=== PATIENT | female | born 1960 | race African-American/Black ===

== ENCOUNTER 2017-05-12 07:57 | Outpatient (CLI) | payer MEDICARE, MEDICAID ==
--- NOTE | 2017-05-12 15:57 | NM ---
NUCLEAR MEDICINE PARATHYROID SCAN WITH SPECT CT: 05/12/17 HISTORY: 56-year-old female with hyperparathyroidism and prior parathyroid surgery. TECHNIQUE: Following the intravenous administration of 25.2 millicuries technetium 99m labeled Sestamibi, immed iate post injection imaging, one hour delay imaging and two hour delay imaging is obtained in the a nterior, BERE, and BAHAMIAN positions. In addition, SPECT CT was obtained at two hour delay. FINDINGS: There is a subtle area of radiotracer activity corresponding to a subcentimeter hypodense nodule pos terior to t he inferior aspect of the left lobe of the thyroid gland anterior to the esophagus and m edial to the internal jugular vein. This is suspicious for a subcentimeter parathyroid adenoma poste rior to the inferior aspect of the left lobe of the thyroid gland. No additional abnormality is seen . Correlation with a CT examination of the neck with and without IV contrast using the parathyroid slick noma protocol may be beneficial. If this is performed, recommend injecting the patient through the right arm. IMPRESSION: Findings suspicious for a subcentimeter parathyroid adenoma posterior to the inferior aspect of the left lobe of the thyroid gland. This was evaluated in consultation with Dr. Juarez who is in agreement. POS: [facility]
== END 2017-05-12 07:58 | disposition home or self-care (01) ==
LOC: NM 07:57
PROVIDERS: ATTEND Otolaryngology Plastic Surgery within the Head & Neck
DX: E21.3 Hyperparathyroidism, unspecified (principal)
CPT/HCPCS: 78072; A9500

== ENCOUNTER 2017-06-16 08:31 | Day surgery (SDC) | payer MEDICARE, MEDICAID ==
[2017-06-08 11:23] VITALS: BMI 31.8
[2017-06-16 10:29] LABS: Hematocrit 32.4 % (36.0-47.0)
[2017-06-16 10:46] LABS: Anion Gap 12 mmol/L (10-20); BUN (Urea Nitrogen) 16 mg/dL (9.8-20.1); Calc. Creatinine Clearance 70 mL/min (70-130); Calcium 11.2 mg/dL (7.8-10.44); Carbon Dioxide 21 mmol/L (22-29); Chloride 110 mmol/L (98-107); Estimated GFR-MDRD 56
[2017-06-16] MEDS ORDERED: Lidocaine 1% w/Epinephrine 1:200K 30 ML VIAL ONE (11:28)
[2017-06-16] MEDS ORDERED: Fentanyl 250 MCG/5 ML VIAL ONE (11:50)
[2017-06-16] MEDS ORDERED: Midazolam HCl 2 mg/2 ml Vial ONE (12:02)
[2017-06-16] MEDS ORDERED: Morphine 4 MG/ML VIAL ONE (14:38)
[2017-06-16] MEDS ORDERED: Ondansetron HCl/PF 4 MG/2 ML Vial ONE (16:15)
[2017-06-16] MEDS ORDERED: Dexamethasone 20 MG/5 ML VIAL ONE (16:15)
[2017-06-16] MEDS ORDERED: Lidocaine 1% PF 5 ML VIAL ONE (16:15)
[2017-06-16] MEDS ORDERED: ePHEDrine/0.9% NaCl/PF SYRINGE 50 mg/10 ml ONE (16:15)
[2017-06-16] MEDS ORDERED: Succinylcholine Chloride 20 MG/ML 10 ml SYRINGE FS ONE (16:15)
[2017-06-16] MEDS ORDERED: Propofol 200 MG/20 ML VIAL ONE (16:15)
--- NOTE | 2017-06-17 11:28 | OP ---
DATE OF PROCEDURE: 06/16/2017 PREOPERATIVE DIAGNOSES: 1. Hyperparathyroidism. 2. Hypercalcemia. POSTOPERATIVE DIAGNOSES: 1. Hyperparathyroidism. 2. Hypercalcemia. PROCEDURE PERFORMED: Left parathyroidectomy. SURGEON: Dr. Sohan Simmons. BOOKIE: Dr. Rahat Spear. ESTIMATED BLOOD LOSS: 10 mL. COMPLICATIONS: None. ANESTHESIA: GETA with laryngeal nerve monitoring. PROCEDURE IN DETAIL: The patient was taken to the operating room and placed supine on the table. Ge neral endotracheal anesthesia was obtained by the Anesthesia staff. Direct laryngoscopy was used to confirm that the laryngeal electrodes were between the true vocal cord and then the laryngeal tube wa s then secured to the midline of the upper lip. A shoulder roll was placed. The patient was then pr epped and draped for standard surgical procedure. Following this, 6 mL of 1% lidocaine with 1:100,00 0 epinephrine was injected into a previous parathyroid incision and horizontally across the lower nec k. Following this, subplatysmal flaps were elevated superiorly and inferiorly. The strap muscles we re identified and were in the midline. The thyroid gland was identified within the scar ca psule and dissection was carried immediately adjacent to the thyroid capsule. A large bilobed parath yroid adenoma was encountered and was removed. Rapid PTH confirmation confirmed drop of the PTH leve l to 55 from its previous . Intraoperative frozen section also confirmed parathyroid adenoma. Following this, the wound was irrigated, a small amount of Surgicel was placed in the surgical bed an d the wound was closed using Monocryl stitches and Dermabond to the skin. The patient tolerated the procedure well.
== END 2017-06-16 17:00 | disposition home or self-care (01) ==
LOC: SDC 08:31
PROVIDERS: ATTEND Otolaryngology Plastic Surgery within the Head & Neck
PROC: 0GBR0ZZ Excision of Parathyroid Gland, Open Approach (ICD-10-PCS; principal; 2017-06-16)
DX: E21.3 Hyperparathyroidism, unspecified (principal); K21.9 Gastro-esophageal reflux disease without esophagitis; E11.9 Type 2 diabetes mellitus without complications; Z79.4 Long term (current) use of insulin; Z79.899 Other long term (current) drug therapy; Z90.710 Acquired absence of both cervix and uterus; Z90.722 Acquired absence of ovaries, bilateral; Z98.42 Cataract extraction status, left eye; Z98.41 Cataract extraction status, right eye
CPT/HCPCS: 36416; 80048; 83970; 85014; 85018; 85049; 88305; 88331; 88334; 93005; 93010; 96374; J0131; J1100; J2001; J2250; J2270; J2405; J2704; J3010

== ENCOUNTER 2018-03-24 08:48 | Outpatient (CLI) | payer MEDICARE, MEDICAID ==
--- NOTE | 2018-03-24 10:02 | ULT ---
LEFT LOWER EXTREMITY VENOUS DOPPLER: Date: 03/24/18 HISTORY: Pain left leg. COMPARISON: None. TECHNIQUE: Real-time Wallace scale and color Doppler with spectral analysis of the left lower extremity venous sys tem was performed through the common femoral, femoral, proximal portions of greater saphenous and sacha p femoral veins, as well as the popliteal and posterior tibial veins were interrogated. FINDINGS: Normal flow, augmentation, and compression. IMPRESSION: No deep venous thrombosis. POS: [facility]
== END 2018-03-24 08:49 | disposition home or self-care (01) ==
LOC: ULT 08:48
PROVIDERS: ATTEND Physician Assistant
DX: M79.605 Pain in left leg (principal)

== ENCOUNTER 2018-05-09 08:21 | Outpatient (CLI) | payer MEDICARE, MEDICAID | END 2018-05-09 08:22 | disposition home or self-care (01) | LOC: BICMAMMO 08:21 | PROVIDERS: ATTEND Physician Assistant | DX: Z12.31 Encounter for screening mammogram for malignant neoplasm of breast (principal); Z80.3 Family history of malignant neoplasm of breast | CPT/HCPCS: 77063; 77067 ==

== ENCOUNTER 2019-01-04 10:10 | Outpatient (CLI) | payer MEDICARE, MEDICAID ==
--- NOTE | 2019-01-04 11:49 | MRI ---
MRI left shoulder WO Con HISTORY: Shoulder pain x2 years COMPARISON: None. FINDINGS: There is mild arthrosis of the AC joint. The supra as well as infraspinatus tendons are intact. The subscapularis muscle and tendon are intact and the biceps tendon is normal in position within the bicipital groove. The labrum is difficult to assess on this examination. Some increased signal change within the superi or labrum could indicate some degeneration but no definitive tear. The inferior glenohumeral ligament is intact. There is no significant rotator cuff muscle atrophy noted. Of incidental note is some blooming artifact related to the posterior back suggesting some type of me tallic foreign body.. IMPRESSION: No evidence of rotator cuff tear or any definitive findings of acute labral injury. Minim al fluid associated with the subacromial subdeltoid bursa.
== END 2019-01-04 10:11 | disposition home or self-care (01) ==
LOC: SCSMRI 10:10
PROVIDERS: ATTEND Orthopaedic Surgery
DX: M25.512 Pain in left shoulder (principal)

== ENCOUNTER 2019-05-10 07:59 | Outpatient (CLI) | payer MEDICARE, MEDICAID ==
--- NOTE | 2019-05-10 08:42 | MMO ---
Bilateral MAMMO Bilat Screen [facility]. CLINICAL HISTORY: Patient is 58 years old and is seen for screening. The patient has the following family history of breast cancer: sister. The patient has no personal history of cancer. VIEWS: The views performed were: bilateral craniocaudal with tomosynthesis and bilateral mediolateral oblique with tomosynthesis. FILMS COMPARED: The present examination has been compared to prior imaging studies performed at [facility] on 05/04/2016, 05/21/2016, 05/06/2017 and 05/09/2018. This study has been interpreted with the assistance of computer-aided detection. MAMMOGRAM FINDINGS: There are scattered fibroglandular densities. Finding 1: There is a stable nodule seen in the sub-areolar region of the right breast. Finding 2: There are stable benign appearing calcifications seen in both breasts. There are also vascular calcifications. There are no suspicious masses, suspicious calcifications, or new areas of architectural distortion. IMPRESSION: THERE IS NO MAMMOGRAPHIC EVIDENCE OF MALIGNANCY. A ROUTINE FOLLOW-UP MAMMOGRAM IN 1 YEAR IS RECOMMENDED. THE RESULTS OF THIS EXAM WERE SENT TO THE PATIENT. ACR BI-RADS Category 2 - Benign finding MAMMOGRAPHY NOTE: 1. A negative mammogram report should not delay a biopsy if a dominant of clinically suspicious mass is present. 2. Approximately 10% to 15% of breast cancers are not detected by mammography. 3. Adenosis and dense breasts may obscure an underlying neoplasm. Reported by: BRIAN ESCOBEDO MD Electonically Signed: [id number]
== END 2019-05-10 08:00 | disposition home or self-care (01) ==
LOC: BICMAMMO 07:59
PROVIDERS: ATTEND Physician Assistant
DX: Z12.31 Encounter for screening mammogram for malignant neoplasm of breast (principal); Z80.3 Family history of malignant neoplasm of breast
CPT/HCPCS: 77063; 77067

== ENCOUNTER 2020-04-08 08:01 | Outpatient (CLI) | payer MEDICARE, MEDICAID ==
[2020-04-08] MEDS ORDERED: Iopamidol-370 76% 500 ML 1 ML ONE (08:48)
--- NOTE | 2020-04-08 10:56 | CT ---
CT OF THE ABDOMEN AND PELVIS WITH AND WITHOUT IV CONTRAST: INDICATION: Microhematuria. COMPARISON: None. FINDINGS: The lung bases are clear. The gallbladder and liver appear within normal limits. The pancreas and spleen appear within normal limits. There is a 1 cm nodule involving the left adrenal body that cannot be further characterized. There i s an 8 mm right adrenal adenoma that is present. There are tiny subcentimeter cysts involving both kidneys. No solid renal lesion is evident. No def inite renal or ureteral calculus is evident. No hydronephrosis is demonstrated. No gross urothelial lesion is seen on the delayed-phase images. There is prominent wall thickening and perivesicular fat stranding involving the bladder. There are mild vascular calcifications involving the abdominal aorta. There is a normal appendix in the right lower quadrant. The rectum and perirectal soft tissues are unremarkable-appearing. The small bowel is normal-appearing. No definite acute osseous abnormality is evident. IMPRESSION: 1. Findings suspicious for cystitis. Recommend correlation with clinical exam. 2. Tiny subcentimeter hypodensities involving both kidneys suspicious for tiny cysts. 3. Right adrenal adenoma and incompletely characterized left adrenal nodule. Followup CT of the abd omen utilizing adrenal mass protocol is recommended for additional characterization. POS: [facility]
== END 2020-04-08 08:02 | disposition home or self-care (01) ==
LOC: BICCT 08:01
PROVIDERS: ATTEND Urology
DX: R31.29 Other microscopic hematuria (principal); D35.01 Benign neoplasm of right adrenal gland; E27.8 Other specified disorders of adrenal gland; R93.422 Abnormal radiologic findings on diagnostic imaging of left kidney; R93.421 Abnormal radiologic findings on diagnostic imaging of right kidney
CPT/HCPCS: 74178; 81001; 82565; 87077; 87086; 87186; 88112; Q9967

== ENCOUNTER 2020-05-22 11:06 | Outpatient (CLI) | payer MEDICARE, MEDICAID ==
--- NOTE | 2020-05-22 13:44 | MMO ---
Bilateral MAMMO Bilat Screen [facility]. CLINICAL HISTORY: Patient is 60 years old and is seen for screening. The patient has the following family history of breast cancer: sister. The patient has no personal history of cancer. VIEWS: The views performed were: bilateral craniocaudal with tomosynthesis and bilateral mediolateral oblique with tomosynthesis. FILMS COMPARED: The present examination has been compared to prior imaging studies performed at [facility] on 05/21/2016, 05/06/2017, 05/09/2018 and 05/10/2019. This study has been interpreted with the assistance of computer-aided detection. MAMMOGRAM FINDINGS: There are scattered fibroglandular densities. Benign calcifications are noted bilaterally. Nodularity is stable. There are no suspicious masses, suspicious calcifications, or new areas of architectural distortion. IMPRESSION: THERE IS NO MAMMOGRAPHIC EVIDENCE OF MALIGNANCY. A ROUTINE FOLLOW-UP MAMMOGRAM IN 1 YEAR IS RECOMMENDED. THE RESULTS OF THIS EXAM WERE SENT TO THE PATIENT. ACR BI-RADS Category 2 - Benign finding MAMMOGRAPHY NOTE: 1. A negative mammogram report should not delay a biopsy if a dominant of clinically suspicious mass is present. 2. Approximately 10% to 15% of breast cancers are not detected by mammography. 3. Adenosis and dense breasts may obscure an underlying neoplasm. Reported by: CHINO ROBERTS MD Electonically Signed: [id number]
== END 2020-05-22 11:07 | disposition home or self-care (01) ==
LOC: BICMAMMO 11:06
PROVIDERS: ATTEND Physician Assistant
DX: Z12.31 Encounter for screening mammogram for malignant neoplasm of breast (principal); Z80.3 Family history of malignant neoplasm of breast
CPT/HCPCS: 77063; 77067

== ENCOUNTER 2020-09-11 13:59 | Outpatient (CLI) | payer MEDICARE, MEDICAID ==
[~2020-09-11 13:59] MED LIST: Iopamidol 370 76% 100 ML VIAL ONE
== END 2020-09-11 14:00 | disposition home or self-care (01) ==
LOC: BICCT 13:59
PROVIDERS: ATTEND Urology
DX: D35.01 Benign neoplasm of right adrenal gland (principal); E27.8 Other specified disorders of adrenal gland
CPT/HCPCS: 74170; 82565; Q9967

== ENCOUNTER 2021-07-17 10:05 | Outpatient (CLI) | payer MEDICARE, MEDICAID ==
[2021-07-17 20:45] LABS: SARS-CoV-2 PCR by NAA Not Detected (NotDetected)
== END 2021-07-17 10:06 | disposition home or self-care (01) ==
LOC: LABBT 10:05
PROVIDERS: ATTEND Specialist
DX: Z01.812 Encounter for preprocedural laboratory examination (principal); R13.10 Dysphagia, unspecified; Z20.822 Contact with and (suspected) exposure to COVID-19
CPT/HCPCS: U0003; U0005

== ENCOUNTER 2021-07-22 07:52 | Outpatient (CLI) | payer MEDICARE, MEDICAID | END 2021-07-22 07:53 | disposition home or self-care (01) | LOC: RAD 07:52 | PROVIDERS: ATTEND Specialist | DX: R13.10 Dysphagia, unspecified (principal); Q89.8 Other specified congenital malformations | CPT/HCPCS: 74220 ==